=== PATIENT | female | born 1975 | race Caucasian/White ===

== ENCOUNTER → 2017-11-16 | Outpatient (REF) | payer OTHER ==
[2017-11-20 00:08] LABS: Lyme Disease IgG/IgM Antibodie <0.91 ISR (0.00-0.90); Lyme Disease IgM Ab Quantitati <0.80 index (0.00-0.79)
== END ==
LOC: M LAB REF 12:25
DX: Z11.59 Encounter for screening for other viral diseases (principal)

== ENCOUNTER → 2019-09-13 | Outpatient (CLI) | payer OTHER ==
--- NOTE | 2019-09-13 09:02 | REP ---
Clinical: Trauma with left shoulder pain . Technique: Internal rotation, external rotation, and Y view. Findings: No acute fracture or dislocation. The acromioclavicular and glenohumeral joints are intact. No periarticular calcifications or degenerative changes are appreciated. Sub acromial space is normal. Surrounding soft tissues are unremarkable. Impression: Normal age-appropriate left shoulder radiographs. No acute fracture or dislocation appreciated. Electronically Signed by Theron Vidal MD 09/13/2019 08:54 A
== END ==
LOC: M WUC 08:30
PROVIDERS: ATTEND Nurse Practitioner Family
DX: M25.511 Pain in right shoulder (principal)

== ENCOUNTER → 2020-09-02 | Outpatient (REF) | payer OTHER ==
[2020-09-02 14:25] LABS: FREE T4 1.29 NG/DL (0.76-1.46); THYROID STIMULATING HORMONE 0.138 uIU/ML (0.358-3.740)
== END ==
LOC: M LABDRWAD 13:53 → M LAB REF 13:53
PROVIDERS: ATTEND Internal Medicine Endocrinology, Diabetes & Metabolism
DX: E06.3 Autoimmune thyroiditis (principal)

== ENCOUNTER → 2020-09-02 | Outpatient (CLI) | payer OTHER ==
[2020-09-02 11:24] LABS: BASO % 0.4 % (0.0-1.0); EOS # 0.5 10^3/uL (0.0-0.5); EOS % 6.5 % (0.0-3.0); HEMATOCRIT 44.3 % (36.0-47.0); HEMOGLOBIN 14.1 g/dl (12.0-15.5); LYMPH # 1.9 10^3/uL (1.5-5.0); LYMPH % 26.8 % (24.0-44.0); MEAN CORPUSCULAR HEMOGLOBIN 29.1 pg (27.0-33.0); MEAN CORPUSCULAR HGB CONC 31.8 g/dl (32.0-36.5); MEAN CORPUSCULAR VOLUME 91.3 fl (80.0-96.0); MONO # 0.5 10^3/uL (0.0-0.8); MONO % 7.1 % (2.0-8.0); NEUTROPHILS # 4.1 10^3/uL (1.5-8.5); NEUTROPHILS % 58.9 % (36.0-66.0); PLATELET COUNT, AUTOMATED 332 10^3/uL (150-450); RED BLOOD COUNT 4.85 10^6/uL (4.00-5.40); WHITE BLOOD COUNT 6.9 10^3/uL (4.0-10.0)
[2020-09-02 11:59] LABS: ERYTHROCYTE SEDIMENTATION RATE 12 mm/hr (0-20)
[2020-09-02 12:28] LABS: ALBUMIN 3.9 GM/DL (3.2-5.2); ALT/SGPT 34 U/L (12-78); BILIRUBIN,TOTAL 0.4 MG/DL (0.2-1.0); BLOOD UREA NITROGEN 16 MG/DL (7-18); CARBON DIOXIDE LEVEL 25 MEQ/L (21-32); CHLORIDE LEVEL 106 MEQ/L (98-107); CREATININE FOR GFR 0.69 MG/DL (0.55-1.30); GLOMERULAR FILTRATION RATE > 60.0 (>58); GLUCOSE, FASTING 87 MG/DL (70-100); LDH LACTATE DEHYDROGENASE 140 U/L (84-246); POTASSIUM SERUM 4.4 MEQ/L (3.5-5.1); SODIUM LEVEL 137 MEQ/L (136-145); TOTAL 25(OH) VITAMIN D 45.9 NG/ML (30.0-100.0); TOTAL PROTEIN 7.5 GM/DL (6.4-8.2)
[2020-09-02 12:29] LABS: CA 125 7.9 U/ML (<30.2)
== END ==
LOC: M LABDRWAD 08:15
PROVIDERS: ATTEND General Practice
DX: R68.89 Other general symptoms and signs (principal); E55.9 Vitamin D deficiency, unspecified; E60 Dietary zinc deficiency; E01.8 Other iodine-deficiency related thyroid disorders and allied conditions; E03.9 Hypothyroidism, unspecified; R97.1 Elevated cancer antigen 125 [CA 125]; A69.20 Lyme disease, unspecified; B60.00 Babesiosis, unspecified; R05 Cough; D89.89 Other specified disorders involving the immune mechanism, not elsewhere classified; A77.0 Spotted fever due to Rickettsia rickettsii; J15.7 Pneumonia due to Mycoplasma pneumoniae; M05.9 Rheumatoid arthritis with rheumatoid factor, unspecified; R79.82 Elevated C-reactive protein (CRP); R74.01 Elevation of levels of liver transaminase levels

== ENCOUNTER → 2020-12-16 | Outpatient (CLI) | payer OTHER ==
--- NOTE | 2020-12-16 13:16 | REP ---
INDICATION: GENETIC SUSCEPTIBILITY TO OTHER MALIGNANT NEOPLASM. COMPARISON: 09/03/2018. TECHNIQUE: Transabdominal and transvaginal scanning performed. FINDINGS: Uterine dimensions are 7.0 x 3.3 x 4.0 cm. Endometrial echo is 5 mm in AP dimension and centrally placed. Two posterior fibroids are noted, measuring 8 x 5 x 7 mm and 13 x 6 x 6 mm. The bladder measures 12.8 x 10.0 x 11.8cm. The right ovary has been surgically removed. The left ovary dimensions are 2.5 x 1.3 x 2.4 cm. It's Doppler flow was normal with resistive index of 0.55. Within the left ovary there is a 7 mm hyperechoic area and a 7 mm hypoechoic area. These appears stable compared to the prior study. No free fluid is seen in the cul-de-sac. IMPRESSION: Stable appearance of left ovary. No suspicious adnexal mass. Two uterine fibroids are noted as discussed above. <Electronically signed by Spike Page > 12/16/20 [id number]
== END ==
LOC: M RAD 11:47
PROVIDERS: ATTEND Obstetrics & Gynecology
DX: D39.12 Neoplasm of uncertain behavior of left ovary (principal); Z15.01 Genetic susceptibility to malignant neoplasm of breast; Z15.09 Genetic susceptibility to other malignant neoplasm

== ENCOUNTER → 2021-04-03 | Outpatient (REF) | payer OTHER ==
[2021-04-03 18:05] LABS: BASO % 0.3 % (0.0-1.0); EOS # 0.2 10^3/uL (0.0-0.5); EOS % 2.7 % (0.0-3.0); HEMATOCRIT 39.3 % (36.0-47.0); HEMOGLOBIN 12.5 g/dl (12.0-15.5); LYMPH # 2.3 10^3/uL (1.5-5.0); LYMPH % 29.7 % (24.0-44.0); MEAN CORPUSCULAR HEMOGLOBIN 29.5 pg (27.0-33.0); MEAN CORPUSCULAR HGB CONC 31.8 g/dl (32.0-36.5); MEAN CORPUSCULAR VOLUME 92.7 fl (80.0-96.0); MONO # 0.6 10^3/uL (0.0-0.8); MONO % 7.6 % (2.0-8.0); NEUTROPHILS # 4.6 10^3/uL (1.5-8.5); NEUTROPHILS % 59.4 % (36.0-66.0); PLATELET COUNT, AUTOMATED 339 10^3/uL (150-450); RED BLOOD COUNT 4.24 10^6/uL (4.00-5.40); WHITE BLOOD COUNT 7.7 10^3/uL (4.0-10.0)
[2021-04-03 18:29] LABS: ALBUMIN 3.6 GM/DL (3.2-5.2); ALT/SGPT 27 U/L (12-78); BILIRUBIN,TOTAL 0.1 MG/DL (0.2-1.0); BLOOD UREA NITROGEN 16 MG/DL (7-18); CALCIUM LEVEL 9.5 MG/DL (8.5-10.1); CARBON DIOXIDE LEVEL 27 MEQ/L (21-32); CHLORIDE LEVEL 106 MEQ/L (98-107); CREATININE FOR GFR 0.86 MG/DL (0.55-1.30); GLOMERULAR FILTRATION RATE > 60.0 (>58); GLUCOSE, FASTING 95 MG/DL (70-100); POTASSIUM SERUM 4.4 MEQ/L (3.5-5.1); SODIUM LEVEL 139 MEQ/L (136-145)
== END ==
LOC: M LABDRWAD 17:11
PROVIDERS: ATTEND General Practice
DX: R68.89 Other general symptoms and signs (principal); E60 Dietary zinc deficiency

== ENCOUNTER → 2021-08-10 | Outpatient (CLI) | payer OTHER | LOC: M WHC 13:36 | PROVIDERS: ATTEND Obstetrics & Gynecology | DX: Z15.01 Genetic susceptibility to malignant neoplasm of breast (principal) ==

== ENCOUNTER → 2021-08-14 | Outpatient (REF) | payer OTHER ==
[2021-08-14 16:56] LABS: FREE T4 1.19 NG/DL (0.76-1.46); THYROID STIMULATING HORMONE 0.332 uIU/ML (0.358-3.740)
== END ==
LOC: M LABDRWAD 16:06
PROVIDERS: ATTEND Internal Medicine Endocrinology, Diabetes & Metabolism
DX: E06.3 Autoimmune thyroiditis (principal)